=== PATIENT | female | born 1995 | race Caucasian/White ===

== ENCOUNTER 2019-10-06 11:28 | Outpatient (CLI) | payer MEDICAID ==
[~2019-10-06] VITALS: Ht 172.7 cm; Wt 108.2 kg
[~2019-10-06 11:28] MED LIST: FERROUS SULFATE65 MG PO; MOTRIN 600600 MG/TAB PO; NO HOME MEDICATIONS; PREDNISONE1 MG PO; PRENATAL1 TA7 PO
[2019-10-06 11:30] VITALS: PULSE 92; TEMP 98.6
--- NOTE | 2019-10-06 11:35 | NUR ---
Patient arrives via wheelchair from ER with concerns of vaginal bleeding that started around 1030 this morning. Patient states "it is light to medium flow". Patient states she has had lower back pain for around one week, and light lower abdominal cramping that started this morning. Patient states the last time she felt baby move was "probably about 1-2 days ago". Patient states her bleeding has been "on and off since 1030". Patient escorted to bed, EFM explained and placed. VS obtained. Patient very anxious and tearful until FHR noted. See physician notification by Desi Luis RN. 1145- SVE by Desi Luis RN closed/thick/high and no blood noted on exam glove. See physician notification. 1150- Patient reports movement, audible movement noted on EFM. Patient updated on plan of care and orders recieved. Agrees to plan of care. 1158- Betamethasone given per order, see EMAR. Rhogam pending lab results.
[2019-10-06 12:00] VITALS: BP 146/71; PULSE 85; TEMP 98.6
[2019-10-06 12:30] VITALS: BP 134/63; PULSE 86
[2019-10-06 13:00] VITALS: BP 140/66; PULSE 111
--- NOTE | 2019-10-06 13:35 | NUR ---
See physician notification. Patient taken off EFM per order and updated on plan of care. Rhogam given, see EMAR.
[2019-10-06 13:50] VITALS: BP 121/62; PULSE 88
--- NOTE | 2019-10-06 13:50 | NUR ---
Discharge instructions and return precautions given to patient. Questions answered. Verbalized understanding. Patient ambulatory off of unit at this time with FOB.
== END 2019-10-06 13:50 | disposition home or self-care (01) ==
LOC: LDRO 11:28
DX: O46.92 Antepartum hemorrhage, unspecified, second trimester (principal); Z3A.26 26 weeks gestation of pregnancy
CPT/HCPCS: J0702; J2791

== ENCOUNTER 2020-01-07 06:34 | Inpatient (IN) | payer MEDICAID ==
[~2020-01-07] VITALS: Ht 172.7 cm; Wt 120.0 kg
[2020-01-09] VITALS (44 sets, daily range): BP systolic 101–165; BP diastolic 49–95; PULSE 72–105; TEMP 97.7–99
[2020-01-09 08:38] LABS: BASO % 0.3 % (0.0-2.0); EOS % 0.5 % (0-4.0); GRAN # 4.7 (1.4-6.5); LYMPH # 2.1 (1.2-3.4); MEAN CELL VOLUME 88 fl (80.0-100.0); MEAN CORPUSCULAR HEMOGLOBIN 30 pg (27.0-31.0); MEAN CORPUSCULAR HGB CONC 34 g/dl (33.0-37.0); MEAN PLATELET VOLUME 10.3 fl (7.4-10.4); MONO # 0.9 (0.1-0.6); MONO % 11.2 % (1.7-9.3); PLATELET COUNT 192 K/mm3 (130-400); RED BLOOD COUNT 3.69 M/mm3 (4.10-5.30); REDCELL DISTRIBUTION WIDTH-CV 13.8 % (11.5-14.5)
[2020-01-09 08:39] LABS: HEMATOCRIT 32.6 % (37.0-47.0)
--- NOTE | 2020-01-09 09:02 | NUR ---
Pt and significant other arrive for scheduled induction of labor at 0700. Pt changed into gown, EFM explained and placed. Pt denies vaginal bleeding and leaking of fluid, reports feeling "cramping" and good movement. Pt reports loosing her mucous plug last night. IV started in left wrist at 0735, labs drawn, LR started per protocol. 1st dose of Sandro started. Consents discussed and signed, assessment complete, vitals taken. Urine sample collected. Pitocin started at 2mu/ml/hr per induction protocol at 0809. Dr. Velazquez on unit and updated at 0845.
--- NOTE | 2020-01-09 09:09 | NUR ---
Dr. Velazquez to pt bedside. SVE per provider /-2. AROM at this time. Meconium fluid noted. Leonor Mac RN of nursery notified.
[2020-01-09 09:16] LABS: TRICYCLIC ANTIDEPRESS URINE NEGATIVE
--- NOTE | 2020-01-09 13:58 | NUR ---
1230 - Leonor Hernandez CRNA to pt bedside for epidural. Pt assisted into upright sitting position at bedside. Difficulty tracing FHR during epidural insertion. RN remained at bedside. FHR audible at times in 140s-150s but not well traced of FHT. 1245 - Test dose given by Leonor Hernandez CRNA. 1255 - Pt repositioned WL after epidural. 1302 - Pt reports continuing discomfort on right side. Pt repositioned WR. 1306 - Dr. Velazquez to pt bedside. SVE per provider /1. FSE applied by Dr. Velazquez. Difficulty tracing FHR with FSE, FHT tracing well with FHM at 1309. FSE discontinued at this time. 1322 - Pt feeling urge to void. Straight cath done at this time. 200ml urine emptied from bladder. 1329 - Pt continues to report discomfort on right side. Pt repositioned RL. Leonor Hernandez CRNA notified. 1335 - Leonor Hernandez to pt bedside, repositioned epidural catheter.
--- NOTE | 2020-01-09 18:24 | NUR ---
Placenta delivers spont and intact with 3 vessell cord. Pitocin gtt to bolus rate.
--- NOTE | 2020-01-09 18:35 | NUR ---
Methergine0.2mg to L ant thigh. Dr Velazquez massages fundus, retrieves small clots, reports "it firms well with massage." Pericare completed, ice pack to perimeum, bed together. Pt and significant other loving and excited about . 184 pT GETS INFANT TO BREAST
--- NOTE | 2020-01-09 18:56 | NUR ---
[id number] - Difficulty tracing FHT, maternal heart tones traced at 1405 and 1406 1411 - SVE 9-10/90/-1. Repositioned to sitting upright in bed. 1514 - SVE unchanged. 1520 - Pt repositioned to RL with left leg up in stirrup. Intermittent difficulties tracing FHT. 1606 - Dr. Velazquez to pt bedside for evaluation. SVE unchanged. FSE removed from baby's head at 1611. Plan for decision at 1613. 1618 - Pt upset about . Difficulty tracing FHT with maternal movement. 1620 - Pt feeling increasing pressure with contractions. Pt feels urge to push. Discussed this with Dr. Velazquez, still on unit. Per physician, ok to go ahead with pushing with contractions when pt desires. 1632 - Pt started pushing with contractions with RN at bedside. Difficulty tracing FHT. Intermittent late decelerations with FHR into 100's but recovering in less than 1 minutes. RN remains at bedside. 1644 - Romero catheter placed for possibility of going to OR for . 1654 - Dr. Velazquez to pt bedside for evaluation. Per physician, pt complete. Plan to hold at this time. Pt to continue pushing with contractions. FHT reviewed by Dr. Velazquez. 1729 - Dr. Velazquez to pt bedside for evaluation. Pt pushing well and making progress. Recurrent variables noted. FHT reviewed by Dr. Velazquez. 175 - Romero catheter removed. 100ml urine drained. 180 - Dr. Velazquez called for delivery. Leonor Mac RN of nursery to pt bedside. 1814 - Dr. Velazquez to pt bedside. Per physician, pt and room prepped for delivery. 1818 - Midline episiotomy cut by Dr. Velazquez. 1820 - Viable male delivered spontaneously by Dr. Velazquez. Infant placed on mother's abdomen. Care of infant transferred to Leonor Mac RN of nursery. Cord blood collected. Care of pt transferred to Zachary Chadwick RN. 182 - Spontaneous delivery of placenta by Dr. Velazquez.
--- NOTE | 2020-01-09 21:00 | NUR ---
IV to INT, epidural dc'd. Up to bathroom with careful steady gait. Voids small amount, performs own pericare.Clean gown on. Ambulates to room with steady gait.
[2020-01-10 02:30] VITALS: BP 133/85; PULSE 105; TEMP 98.9
[2020-01-10] MEDS ORDERED: IBU600 MG PO (09:17)
[2020-01-10 09:30] VITALS: BP 141/76; PULSE 88; TEMP 97.7
--- NOTE | 2020-01-10 16:11 | NUR ---
KELLEY responded to the OB to a manager social consult for patient due to sreening of presence of illegal drugs in expectant mother. KELLEY met with the patient's nurse and she states the patient is appropriate with the baby and there are no concerns. The patient had a negative UDS on admission. The patient tested positive for marijuana in early on 06/27/2019. KELLEY met with the patient. The patient states she has a carseat, crib, pack-n-play and other needed baby supplies. The patient lives with the FOB. He has a child and she has a girl the will turn 2 this summer. For other supports the patient has two brothers, a dad and grandma in [facility]. SW provided [facility] Resource Guide. The patient has not signed up for [facility] but plans on doing so. SW addressed the drug usage. The patient states the last time she smoked marijuana was in May of 2019. She states she does not need treatment. KELLEY made a CPS report due to positive UDS in early . CPS # [id number]. KELLEY collaborated the above information with the patient's nurse.
[2020-01-10 16:57] VITALS: BP 136/80; PULSE 79; TEMP 97.9
[2020-01-10 19:30] VITALS: BP 126/62; PULSE 75; TEMP 98.1
[2020-01-11 08:30] VITALS: BP 129/84; PULSE 72; TEMP 97.9
--- NOTE | 2020-01-11 10:36 | NUR ---
Tylenol 650 mg given as per request and as ordered.
[2020-01-11 16:30] VITALS: BP 143/60; PULSE 73; TEMP 98.1
--- NOTE | 2020-01-16 09:47 | NUR ---
Patient's infant's cord blood was negative for illegal drugs in system.
== END 2020-01-11 18:30 | disposition home or self-care (01) | DRG 806 ==
LOC: OB 06:34 → LDR 01-09 06:53 → OB 01-09 21:34
PROVIDERS: ADMIT Obstetrics & Gynecology
PROC: 10E0XZZ Delivery of Products of Conception, External Approach (ICD-10-PCS; principal; 2020-01-09)
PROC: 0W8NXZZ Division of Female Perineum, External Approach (ICD-10-PCS; 2020-01-09)
PROC: 10907ZC Drainage of Amniotic Fluid, Therapeutic from Products of Conception, Via Natural or Artificial Opening (ICD-10-PCS; 2020-01-09)
PROC: 3E033VJ Introduction of Other Hormone into Peripheral Vein, Percutaneous Approach (ICD-10-PCS; 2020-01-09)
DX: O33.5XX0 Maternal care for disproportion due to unusually large fetus, not applicable or unspecified (principal); O72.1 Other immediate postpartum hemorrhage; Z37.0 Single live birth; Z3A.39 39 weeks gestation of pregnancy; H35.102 Retinopathy of prematurity, unspecified, left eye; O34.13 Maternal care for benign tumor of corpus uteri, third trimester; O36.63X0 Maternal care for excessive fetal growth, third trimester, not applicable or unspecified; O77.0 Labor and delivery complicated by meconium in amniotic fluid; O64.0XX0 Obstructed labor due to incomplete rotation of fetal head, not applicable or unspecified; O99.214 Obesity complicating childbirth
CPT/HCPCS: J0690; J1885; J2210; J2370; J2400; J2405; J2540; J2590; J2795; J7120

== ENCOUNTER 2021-10-28 07:52 | Inpatient (IN) | payer MEDICAID ==
[~2021-10-28] VITALS: Ht 170.3 cm; Wt 124.5 kg
[~2021-10-28 07:52] MED LIST changes: +IBU600 MG PO
[2021-10-29] VITALS (37 sets, daily range): BP systolic 110–192; BP diastolic 51–112; PULSE 68–142; TEMP 97.8–98.5
--- NOTE | 2021-10-29 06:30 | NUR ---
0625 PT ambulatory onto unit with spouse. changed into clean gown. FHR monitor/TOCO applied. vital signs WNL at this time. Pt denies regular contractions, decreased movement, vaginal bleeding or gushing of fluid. Pt is educated on IOL and plan of care. Pt verbalizes understanding. Assessments completed. Consents signed. 0700 IV started in right hand. No redness/drainage/edema/bleeding noted. 0712 LR and pitocin are started per protocol.
[2021-10-29] MEDS ORDERED: PROFERRIN ES12 MG PO (06:39)
[2021-10-29 07:41] LABS: BASO % 0.3 % (0.0-2.0); EOS % 0.4 % (0.0-4.0); GRAN # 4.6 K/mm3 (1.4-6.5); GRAN % 59.5 % (42.2-75.2); HEMOGLOBIN 10.9 g/dl (12.5-16.0); LYMPH % 25.5 % (20.0-51.0); MEAN CELL VOLUME 86 fl (80.0-100.0); MEAN CORPUSCULAR HEMOGLOBIN 29 pg (27-31); MEAN CORPUSCULAR HGB CONC 34 g/dl (33.0-37.0); MEAN PLATELET VOLUME 10.4 fl (7.4-10.4); PLATELET COUNT 196 K/mm3 (130-400); RED BLOOD COUNT 3.79 M/mm3 (4.10-5.30); REDCELL DISTRIBUTION WIDTH-CV 14.6 % (11.5-14.5)
[2021-10-29 07:42] LABS: HEMATOCRIT 32.4 % (37.0-47.0)
[2021-10-29 08:06] LABS: TRICYCLIC ANTIDEPRESS URINE NEGATIVE
--- NOTE | 2021-10-29 11:00 | NUR ---
[id number] This RN at bedside using external FHR monitor. difficult to trace due to maternal position and sitting up for epidural. 1052 FSE is placed by this RN
--- NOTE | 2021-10-29 12:30 | NUR ---
1140 this RN SVE /0. 1144 Dr Velazquez called. 1208 This RN begins pushing with patient. 1210 Dr. Velazquez on unit and at patient's bedside, assessing FHR and patient's ability to move baby with contractions. [id number] Dr. Velazquez, this RN, Maryana Nunes, and Irma Jones in patient room helping patient push with contractions and set up for delivery. 1230 Dr. Velazquez decision to do urgent c section due to not moving down with contractions.
--- NOTE | 2021-10-29 19:25 | NUR ---
Report received. Plan of care reviewed. Pt in bed, resting. Significant other in room.
--- NOTE | 2021-10-29 21:06 | NUR ---
PATIENT STILL UNABLE TO MOVE LEGS WELL DUE TO NUMBNESS. ROLLED PATIENT, FRESH MONSERRAT-PADS PROVIDED. REMOVED EPIDURAL CATHETER. EMPTIED MILLER CATHETER. TEA COLORED URINE NOTED WTIH MULTIPLE SMALL BLOOD CLOTS IN MILLER TUBING. LOCHIA WITHIN NORMAL LIMITS. PATIENT IS TEARFUL ABOUT BEING AWAY FROM HER BABY.
--- NOTE | 2021-10-29 22:20 | NUR ---
Pt able to hold both legs off bed for 10 seconds. Romero catheter removed. Urine noted to be attraction worker in color than previous assessment. Pt assisted to stand with 2 person staff assist. Pt ambulated to bathroom with assistance. Janlel-care provided. Mesh underwear and pad place. Small amount of lochia noted to pad placed at 2030. Clot noted in urinary hat. Clot is flat in orientation and fills hat to the 100 mL lola. Pt ambulated to nursery.
--- NOTE | 2021-10-29 22:57 | NUR ---
Pt resting in bed. SCDs are on and removed for ambulation.
--- NOTE | 2021-10-29 23:30 | NUR ---
2330- Pt wheeled back to room by significant other after infant in nursery. Pt assisted to bathroom with 1 person staff assist. Pt encouraged to perform melissa-care. Pt denies need to urinate. Pt was able to pass gas. Clean pads and mesh underwear provided, as well as clean gown. Pt assisted to bed with 1 person staff assist. Pt reports increased pain with movement and ambulation. PRN morphine offered. Pt in bed, resting.
[2021-10-30 00:20] VITALS: BP 131/63; PULSE 84; TEMP 97.7
--- NOTE | 2021-10-30 02:54 | NUR ---
Pt assisted to bathroom with 1 person staff assist. Pt then ambulated to nursery with 1 person standby assist.
[2021-10-30 05:40] VITALS: BP 124/55; PULSE 76; TEMP 97.6
[2021-10-30 07:55] VITALS: BP 113/64; PULSE 78; TEMP 97.4
[2021-10-30] MEDS ORDERED: IBU600 MG PO (08:31)
[2021-10-30] MEDS ORDERED: ROXICODONE 55 MG/TAB PO (08:32)
--- NOTE | 2021-10-30 09:34 | NUR ---
Initial visit attempt; Nurse with patient. Professor Of Astronomy left card of congratulations for the of her son and information regarding the availability of spiritual care at [facility].
--- NOTE | 2021-10-30 11:53 | NUR ---
floor service worker spring met with patient at bedside due to consult on past THC use. Patient lives at home with her and children. This is the patient's 3rd child. 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 Patient reports that they have everything needed to care of baby and that her is instaling a new careseat today. Patient admits to past hx of THC use and states she last used it during the beginning of her second to aid with her morning sickness. Patient has not been positive at all during this and was negitive at delivery. Patient is provided [place] resource list if any needs arise.
[2021-10-30 15:25] VITALS: BP 110/51; PULSE 80; TEMP 97.8
[2021-10-30 17:00] VITALS: BP 114/50; PULSE 83; TEMP 97.6
[2021-10-30 19:50] VITALS: BP 126/58; PULSE 78; TEMP 97.6
[2021-10-31 08:15] VITALS: BP 113/59; PULSE 76; TEMP 97.5
--- NOTE | 2021-10-31 10:30 | NUR ---
PT COMPLAINING OF A HEADACHE THAT WILL NO RESOLVE. THIS RN GIVES OXYCODONE THAT IS DUE AT THIS TIME. PT NOTES THAT HER "HEAD HURTS AND SHE FEELS IT PULSATING OCCASIONALLY" SHE ALSO STATES THAT IT HURTS IN HER "NECK AND SHOULDERS." THIS RN HAS PT LIE FLAT TO SEE IF THIS RESOLVES HEADACHE PAIN. NO RESOLTION. THIS RN BRINGS IN PEPSI FOR PT TO SEE IF IT RELATED TO A NEED FOR CAFFEINE. THIS RN CHECKS IN ON PT 45MINS LATER AND PT DESCRIBES PT "DULL" AND BETTER THAN BEFORE.
[2021-10-31 16:45] VITALS: BP 125/67; PULSE 80; TEMP 97.8
[2021-10-31 19:30] VITALS: BP 117/54; PULSE 76; TEMP 97.6
[2021-11-01 08:50] VITALS: BP 125/73; PULSE 97; TEMP 98.2
--- NOTE | 2021-11-01 08:50 | NUR ---
THIS NURSE TO BEDSIDE FOR MORNING VITAL SIGNS AND PO MED ADMINISTRATION. FINDS PT SITTING UPRIGHT ON BED LEANING OVER A PILLOW. PT REPORTS SEVERE HEADACHE WITH NAUSEA. STATES "MAYBE I NEED TO EAT BREAKFAST." THIS NURSE ADMINISTERS PO TYLENOL AND STOOL SOFTENER PER ORDER. VITAL SIGNS STABLE. PT BEGINS PUKING AT THIS TIME. 300CC OF EMESIS IN BASIN. CALL TO , SEE PHYS NOTIFICATION.
--- NOTE | 2021-11-04 10:26 | NUR ---
Infant's cord blood was negative for illegal drugs in system.
== END 2021-11-01 12:40 | disposition home or self-care (01) | DRG 788 ==
LOC: LDR 10-29 06:09 → OB 10-29 06:11 → LDR 10-29 06:11 → OB 10-29 19:03
PROVIDERS: ADMIT Obstetrics & Gynecology
PROC: 10D00Z1 Extraction of Products of Conception, Low, Open Approach (ICD-10-PCS; principal; 2021-10-29)
PROC: 10907ZC Drainage of Amniotic Fluid, Therapeutic from Products of Conception, Via Natural or Artificial Opening (ICD-10-PCS; 2021-10-29)
PROC: 3E033VJ Introduction of Other Hormone into Peripheral Vein, Percutaneous Approach (ICD-10-PCS; 2021-10-29)
DX: O66.2 Obstructed labor due to unusually large fetus (principal); Z3A.39 39 weeks gestation of pregnancy; O69.2XX0 Labor and delivery complicated by other cord entanglement, with compression, not applicable or unspecified; O99.214 Obesity complicating childbirth; Z37.0 Single live birth; Z86.16 Personal history of COVID-19
CPT/HCPCS: J0690; J1100; J1580; J1885; J2210; J2270; J2405; J2540; J2590; J7120